=== PATIENT | female | born 1965 | race Caucasian/White ===

== ENCOUNTER 2021-09-23 15:02 | Emergency (ER) | payer OTHER ==
[~2021-09-23] VITALS: Ht 170.2 cm; Wt 79.4 kg
[2021-09-23 15:10] VITALS: BP_SYST 166
[2021-09-23] MEDS ORDERED: EPINEPHRINE HCL/PF 1 MG/ML AMP SUBCUT ONE (15:15)
[2021-09-23] MEDS ORDERED: methylPREDNISolone SOD SUCC/PF 62.5 MG/ML VIAL IM ONE (15:15)
[2021-09-23] MEDS ORDERED: DIPHENHYDRAMINE INJ 50 MG/ML VIAL IM ONE (15:15)
[2021-09-23] MEDS ORDERED: PRED20TA PO (16:32)
[2021-09-23] MEDS ORDERED: EPIN0.3P3 IM (16:32)
[2021-09-23 16:34] VITALS: BP_SYST 171
== END 2021-09-23 16:40 | disposition home or self-care (01) ==
LOC: SED 15:02
DX: T63.441A Toxic effect of venom of bees, accidental (unintentional), initial encounter (principal); Z91.030 Bee allergy status; W57.XXXA Bitten or stung by nonvenomous insect and other nonvenomous arthropods, initial encounter; Y93.89 Activity, other specified; Y92.89 Other specified places as the place of occurrence of the external cause; Y99.8 Other external cause status
CPT/HCPCS: 96372; 99284; J0171; J1200; J2930